=== PATIENT | male | born 1940 | race Caucasian/White ===

== ENCOUNTER 2017-11-04 11:45 | Inpatient (IN) ==
[2017-11-17] MEDS ORDERED: HYDROmorphone PF Inj 2 MG/ML Vial IV.PUSH PRN (00:01)
[2017-11-17] MEDS ORDERED: Acetaminophen 325 MG Tablet PO PRN (00:01)
[2017-11-17] MEDS ORDERED: Naloxone Inj 0.4 MG/ML Vial IV.PUSH PRN (00:01)
--- NOTE | 2017-11-17 06:08 | XR ---
EXAM DATE: 11/17/2017 5:51 AM EDT AGE/SEX: 77 years / Male INDICATIONS: Fracture right ribs, pain. CLINICAL DATA: This is the patient's initial encounter. Patient reports that signs and symptoms have been present for 2 days and indicates a pain score of 10/10. MEDICAL/SURGICAL HISTORY: None. None. [place] [facility] [place]. . FINDINGS: Heart size mildly enlarged. Right chest tube without pneumothorax. Multiple right-sided rib fractures with basilar airspace disease, right greater than left. Small right effusion. Tortuous aorta. CONCLUSION: Stable basilar airspace disease, right greater than left. Small caliber right chest tube with small r ight effusion. No significant change from November 16. Electronically signed by: Carlo Marshall MD 11/17/2017 6:07 AM EDT
[2017-11-17] MEDS: Methocarbamol 500 MG Tablet PO SCH ×3 (06:10→21:17)
[2017-11-17 07:23] LABS: Baso % (Auto) 0.2 % (0.0-2.0); Eos # (Auto) 0.3 th/mm3 (0.0-0.4); Eos % (Auto) 2.1 % (0.0-4.0); Hematocrit 27.7 % (39.0-51.0); Hemoglobin 9.2 gm/dL (13.0-17.0); Lymph # (Auto) 0.6 th/mm3 (1.0-4.8); Lymph % (Auto) 4.2 % (9.0-44.0); Mean Corpuscular HGB Conc 33.4 % (32.0-36.0); Mean Platelet Volume 8.3 fL (7.0-11.0); Mono # (Auto) 1.2 th/mm3 (0.0-0.9); Mono % (Auto) 7.5 % (0.0-8.0); Neut # (Auto) 13.2 th/mm3 (1.8-7.7); Platelet Count 340 th/mm3 (150-450); Red Blood Count 2.89 mil/mm3 (4.50-5.90); Red Cell Distribution Width 12.9 % (11.6-17.2); White Blood Count 15.3 th/mm3 (4.0-11.0)
[2017-11-17 08:47] LABS: Eosinophils 1 % (0-4); Lymphocytes 4 % (9-44); Monocytes 7 % (0-8); Myelocytes 2 % (0-0)
[2017-11-17 08:48] LABS: Platelet Estimate Normal (Normal); Platelet Morphology Normal (Normal); Polychromasia 2.4 % (0.0-1.9)
[2017-11-17] MEDS: Lidocaine 5% Patch T-DERMAL SCH (10:04)
[2017-11-17] MEDS: amLODIPine 5 MG Tablet PO SCH ×2 (10:07→21:17)
[2017-11-17] MEDS: Atenolol 25 MG Tablet PO SCH (10:07)
[2017-11-17] MEDS: Senna/Docusate Sodium 8.6/50 MG Tablet PO SCH ×2 (10:07→21:17)
--- NOTE | 2017-11-17 11:58 | P.PNGS ---
<Marcos Aden M - Last Filed: 11/17/17 17:02> Subjective Interval history: Pain controlled Denies SOB Minimal CT drainage overnight Physical Exam Vital signs: Vital Signs 11/17/17 04:00 11/17/17 08:00 Temperature 98.4 F 98.4 F Pulse Rate 72 70 Respiratory Rate 19 18 Blood Pressure 156/70 H 113/57 L Pulse Oximetry 94 L 94 L Intake & Output 11/16/17 11/17/17 11/17/17 18:59 06:59 18:59 Intake Total 480 / 480 Output Total 650 / 650 Balance -170 / -170 Weight 96.6 kg 97.6 kg Intake: Oral 480 / 480 Output: Urine 650 / 650 Other: # Bowel Movements 0 Narrative: GENERAL: 77-year-old well-nourished, well developed male sitting up in bed in no acute distress. SKIN: Warm and dry. HEAD: Normocephalic. NECK: Trachea midline. No JVD. CARDIOVASCULAR: Regular rate and rhythm. RESPIRATORY: No accessory muscle use. Lungs clear and diminished to auscultation. Breath sounds equal bilaterally. Right lateral chest tube secured to Pleur-evac system on water seal. No air leak. GASTROINTESTINAL: Abdomen soft, non-tender, nondistended. + BS. MUSCULOSKELETAL: Extremities without cyanosis, or edema. MAEW, + perfused NEUROLOGICAL: Awake and alert. Normal speech. Assessment and Plan - Plan [facility] [place] [facility] [facility] [place]: Fell off a roof approx 10 feet. No LOC. INJURIES: RIGHT rib fxs (2-10) RIGHT pulmonary contusion RIGHT IAN L3-L4 disk bulge with subluxation L4-L5 anterior subluxation with stenosis LEFT sacral fx (non-op) RIGHT superior and inferior pubic ramus (non-op) RIGHT acetabulum fx (non-op) RIGHT pelvic hematoma PMHx: HLD, [place], CABG 1999, Cardiac stents 2002, HTN, BPH, Insomnia 11/09: Return to ICU for resp distress 11/14: Bronchoscopy 11/14: RIGHT CT placement RIGHT rib fxs, RIGHT pulmonary contusion, RIGHT IAN Supportive care 11/14: Bronchoscopy 11/14: RIGHT CT placement Pulmonary toileting CXR today shows stable effusions On 3L NC RIGHT CT removed at bedside without incident Keep current CT dressing in place x 48 hours CXR in AM EF 55-60% Pain control Bowel regimen OOB- PT and OT ordered LEFT sacral fx, RIGHT superior and inferior pubic ramus, RIGHT acetabulum fx, RIGHT pelvic hematoma Orthopedics consulted, F/U outpatient Non-operative management Pain control TTWB RLE, WBAT LLE OOB- PT ordered Rehab placement UTI PO Levaquin x 7 days WBC improving C-Diff negative Plan of care discussed with patient, son and RN at bedside. Collaborating Trauma surgeon agrees with plan. Case management consulted to assist with discharge planning. Plan to DC to [place] in AM if CXR stable post chest tube removal. <Joe Thibodeaux - Last Filed: 12/16/17 17:48> Assessment and Plan - Attending Attestation The exam, history, and the medical decision-making described in the above note were completed with the assistance of the mid-level provider. I reviewed and agree with the findings presented. I attest that I had a [id number] encounter with the patient on the same day, and personally performed and documented my assessment and findings in the medical record.
[2017-11-17] MEDS: levoFLOXacin 500 MG Tablet PO SCH (18:02)
[2017-11-17] MEDS: Enoxaparin Inj 30 MG/0.3 ML Syringe SQ SCH ×2 (18:03→22:56)
[2017-11-18] MEDS: Methocarbamol 500 MG Tablet PO SCH ×2 (06:08→13:58)
--- NOTE | 2017-11-18 06:40 | XR ---
EXAM DATE: 11/18/2017 6:32 AM EDT AGE/SEX: 77 years / Male INDICATIONS: Short of breath, chest pain. CLINICAL DATA: This is the patient's subsequent encounter. Patient reports that signs and symptoms h ave been present for 4 - 6 days and indicates a pain score of 0/10. MEDICAL/SURGICAL HISTORY: None. None. COMPARISON: [facility], CHEST 1V SINGLE AP, 11/17/2017. . FINDINGS: Persistent opacities in the right mid and lower lung and blunting of the right costophrenic angle. St able elevation right hemidiaphragm. The left lung is clear. The heart is enlarged. Multiple right rib fractures. No evidence of pneumothorax. CONCLUSION: Persistent right pleural effusion, volume loss, right rib fractures, and infiltrates in the right low er lung. Electronically signed by: Ronald Ny MD 11/18/2017 6:39 AM EDT
[2017-11-18] MEDS: Lidocaine 5% Patch T-DERMAL SCH (09:32)
[2017-11-18] MEDS: Senna/Docusate Sodium 8.6/50 MG Tablet PO SCH (09:34)
[2017-11-18] MEDS: Atenolol 25 MG Tablet PO SCH (09:34)
[2017-11-18] MEDS: amLODIPine 5 MG Tablet PO SCH (09:34)
--- NOTE | 2017-11-18 09:49 | P.PN ---
Subjective Interval history: Remarks ALERT DISCOMFORT RIB FX SITE ON O2 NC R CHEST TUBE PLACE LARGE AMOUNT OF FLUID DRAINED Physical Exam Vital signs: Vital Signs 11/17/17 12:00 11/17/17 14:52 11/17/17 16:00 Temperature 98.5 F 98.8 F Pulse Rate 75 65 Respiratory Rate 18 17 Blood Pressure 147/65 H 139/65 Pulse Oximetry 95 97 96 11/17/17 20:00 11/17/17 21:54 11/18/17 01:28 Temperature 98.5 F 98.2 F Pulse Rate 80 69 Respiratory Rate 19 18 Blood Pressure 162/74 H 128/60 Pulse Oximetry 94 L 92 L 94 L Intake & Output 11/17/17 11/18/17 11/18/17 18:59 06:59 18:59 Intake Total 1000 / 1000 Output Total 1650 / 1650 850 / 850 Balance -650 / -650 -850 / -850 Weight 97.6 kg Intake: Oral 1000 / 1000 Output: Urine 1650 / 1650 850 / 850 Other: Date of Last Bowel Movement 11/16/17 Results - Labs CBC & Chem 7: 11/17/17 04:55 11/16/17 03:38 - Imaging Impressions Chest X-Ray 11/18/17 06:09 CONCLUSION: Persistent right pleural effusion, volume loss, right rib fractures, and infiltrates in the right lower lung.
[2017-11-18] MEDS: Enoxaparin Inj 30 MG/0.3 ML Syringe SQ SCH (11:15)
[2017-11-18] MEDS: levoFLOXacin 500 MG Tablet PO SCH (11:15)
--- NOTE | 2017-11-18 14:19 | P.DS ---
Date of admission: 11/04/17 13:00 Primary care physician: UNKNOWN Brief History from admission: S/P Fall DS: Diagnosis - Discharge Diagnosis (1) Ribs, multiple fractures Status: Acute (2) Hemothorax Status: Acute (3) Pelvic fracture Status: Acute DS: Summary Hospital Course: [place]: Fell off a roof approx 10 feet. No LOC. INJURIES: RIGHT rib fxs (2-10) RIGHT pulmonary contusion RIGHT IAN LEFT sacral fx (non-op) RIGHT superior and inferior pubic ramus (non-op) RIGHT acetabulum fx (non-op) RIGHT pelvic hematoma PMHx: HLD, [place], CABG 1999, Cardiac stents 2002, HTN, BPH, Insomnia 11/09: Return to ICU for resp distress 11/14: Bronchoscopy 11/14: RIGHT CT placement 11/17: RIGHT CT removed RIGHT rib fxs, RIGHT pulmonary contusion, RIGHT IAN Supportive care 11/14: Bronchoscopy 11/14: RIGHT CT placement 11/17: RIGHT CT removed Pulmonary toileting CXR today shows stable effusions, No PTX On 3L NC Keep current CT dressing in place x 48 hours EF 55-60% Pain control Bowel regimen OOB- PT and OT ordered LEFT sacral fx, RIGHT superior and inferior pubic ramus, RIGHT acetabulum fx, RIGHT pelvic hematoma Orthopedics consulted, F/U outpatient Non-operative management Pain control TTWB RLE, WBAT LLE OOB- PT ordered Rehab placement UTI PO Levaquin x 7 days WBC improving C-Diff negative F/U with PCP in 1 week Plan of care discussed with patient, son and RN at bedside. Collaborating Trauma surgeon agrees with plan. Case management consulted to assist with discharge planning. Patient is clear from Trauma surgery standpoint to DC to [facility]. - Time Spent with Patient Total time spent providing and/or coordinating discharge services: Exam Vital signs: Vital Signs 11/17/17 14:52 11/17/17 16:00 11/17/17 20:00 Temperature 98.8 F 98.5 F Pulse Rate 65 80 Respiratory Rate 17 19 Blood Pressure 139/65 162/74 H Pulse Oximetry 97 96 94 L 11/17/17 21:54 11/18/17 01:28 11/18/17 08:00 Temperature 98.2 F 98.1 F Pulse Rate 69 68 Respiratory Rate 18 19 Blood Pressure 128/60 139/64 Pulse Oximetry 92 L 94 L 97 11/18/17 12:00 Temperature 98.1 F Pulse Rate 71 Respiratory Rate 18 Blood Pressure 130/61 Pulse Oximetry 97 Intake & Output 11/17/17 11/18/17 11/18/17 18:59 06:59 18:59 Intake Total 1000 / 1000 Output Total 1650 / 1650 850 / 850 Balance -650 / -650 -850 / -850 Weight 97.6 kg Intake: Oral 1000 / 1000 Output: Urine 1650 / 1650 850 / 850 Other: Date of Last Bowel Movement 11/16/17 Narrative: GENERAL: 77-year-old well-nourished, well developed male sitting up in bed in no acute distress. SKIN: Warm and dry. HEAD: Normocephalic. NECK: Trachea midline. No JVD. CARDIOVASCULAR: Regular rate and rhythm. RESPIRATORY: No accessory muscle use. Lungs clear and diminished to auscultation. Breath sounds equal bilaterally. GASTROINTESTINAL: Abdomen soft, non-tender, nondistended. + BS. MUSCULOSKELETAL: Extremities without cyanosis, or edema. MAEW, + perfused NEUROLOGICAL: Awake and alert. Normal speech. Results Procedures completed during hospitalization: 11/14: Bronchoscopy 11/14: RIGHT CT placement - Impressions ITS Impressions Chest X-Ray 11/18/17 06:09 CONCLUSION: Persistent right pleural effusion, volume loss, right rib fractures, and infiltrates in the right lower lung. Discharge Plan - Discharge Disposition Patient Disposition: [facility] Rehab Inpatient - Discharge Condition Condition: Stable - Discharge Order Discharge Orders: Discharge Order (Routine); Ordered 11/18/17 Ordered By: Marcos Aden - Physicians Team Primary Care Provider: UNKNOWN, Attending Provider: Ray Durant Other Providers: Mireya Jordan MD ; Tae Strong MD - Rxs /Orders / Referrals /Forms Prescriptions: New clonidine [[id number]] 0.2 mg/24 hr Patch Weekly 1 patch Transdermal Q7D RF: 0 enoxaparin [Lovenox] 30 mg/0.3 mL Syringe 30 mg Sub-Q Q12H RF: 0 levofloxacin 500 mg Tablet 500 mg PO DAILY@1100 RF: 0 methocarbamol 500 mg Tablet 500 mg PO Q8HR RF: 0 oxycodone 5 mg Tablet 5 mg PO Q4H PRN (Reason: PAIN 1-5) RF: 0 Continue amlodipine 5 mg Tablet 5 mg PO BID PRN (Reason: Chest Pain) atenolol 25 mg Tablet 25 mg PO DAILY lovastatin 40 mg Tablet 40 mg PO QPM nitroglycerin 0.4 mg Tablet, Sublingual 0.4 mg SUBLINGUAL Q5-15M PRN (Reason: Chest Pain) tamsulosin 0.4 mg Capsule,Extended Release 24hr 0.4 mg PO DAILY temazepam 30 mg Capsule 30 mg PO HS PRN (Reason: Sleep) Referrals: Mireya Jordan MD [Physician] - 12/02/17 [facility] [TEST MD] - 11/25/17 Tae Strong MD [Physician] - 12/02/17 - Discharge Instructions Additional Instructions: 11/18/17 Prescription for oxycodone sent to [facility] with patient.
[2017-11-19 12:43] VITALS: BP 139/67; PULSE 70; RESP 22; TEMP 99.1; O2SAT 96
--- NOTE | 2017-12-04 18:19 | MP ---
cc: Ray Durant MD DATE OF OPERATION: 11/14/2017 PREOPERATIVE DIAGNOSES: Respiratory failure, right pleural effusion. POSTOPERATIVE DIAGNOSES: Respiratory failure, right pleural effusion. PROCEDURE PERFORMED: Bronchoscopy, right chest tube placement. SURGEON: Ray Durant MD ANESTHESIA: General. ESTIMATED BLOOD LOSS: Minimal. DESCRIPTION OF PROCEDURE: The patient was prepped and draped in the usual fashion. The area infiltrated with 1% Xylocaine. An incision was made in the fifth intercostal space mid axillary line, deepened down into the chest and 26- Slovak chest tube placed, secured with 0 silk, connected to Pleur-Evac, serosanguineous about 500 mL of fluid drained. The patient is now position and the bronchoscope was inserted into the trachea and into the right and left main stem bronchus. A large amount of mucus material is obtained and suctioned off. Chest x-ray was obtained. The patient tolerated the procedure well. MD TAINA Lennon/IRAIS , 06:09 PM , 06:18 PM
== END 2017-11-18 17:00 ==
LOC: N06 13:00
PROVIDERS: ADMIT Surgery; ATTEND Surgery